=== PATIENT | female | born 1990 | race Caucasian/White ===

== ENCOUNTER 2023-02-03 03:32 | Day surgery (SDC) | payer BC ==
[2023-02-03] MEDS ORDERED: hydrALAZINE 20 MG/ML VIAL SLOW IVP PRN (04:36)
[2023-02-03 06:04] VITALS: BMI 23.6
[2023-02-03 10:17] LABS: #Eosinphils 0.1 10x3/uL (0.0-0.5); #Monocytes 0.4 10x3/uL (0.0-1.1); #Neutrophils 5.4 10x3/uL (1.5-8.4); %Basophils 0.2 % (0.0-2.0); %Eosinophils 1.2 % (0.0-6.0); %Monocytes 4.6 % (0.0-10.0); %Neutrophils 65.6 % (40.0-75.0); Hematocrit 30.6 % (34.9-44.5); Hemoglobin 10.4 g/dL (12.0-15.5); Mean Corpuscular Hemoglobin 29.5 pg (27.0-33.0); Mean Corpuscular Volume 86.7 fl (81.6-98.3); Mean Platelet Volume 8.2 fl (7.4-10.4); Platelet Count 203 10x3/uL (150-450); Red Blood Cell (RBC) Count 3.53 10x6/uL (3.90-5.03); White Blood Cell (WBC) Count 8.2 10x3/uL (3.5-10.5)
== END 2023-02-03 11:56 | disposition home or self-care (01) ==
LOC: CSHLD/OP 03:32
PROVIDERS: ATTEND Obstetrics & Gynecology
DX: O46.93 Antepartum hemorrhage, unspecified, third trimester (principal); Z3A.30 30 weeks gestation of pregnancy; Z88.2 Allergy status to sulfonamides
CPT/HCPCS: 36415; 76816; 85025; 86850; 86900; 86901; 87480; 87510; 87660

== ENCOUNTER 2025-03-25 12:12 | Emergency (ER) | payer OTHER ==
[2025-03-25] MEDS ORDERED: Ondansetron PF 4 MG/2 ML Vial ONE (12:57)
== END 2025-03-25 14:54 | disposition home or self-care (01) ==
LOC: CSHERS 12:12
DX: O98.512 Other viral diseases complicating pregnancy, second trimester (principal); J10.1 Influenza due to other identified influenza virus with other respiratory manifestations; Z3A.18 18 weeks gestation of pregnancy
CPT/HCPCS: 76815; 96361; 96374; J2405